=== PATIENT | female | born 1985 | race African-American/Black ===

== ENCOUNTER 2018-02-12 19:07 | Emergency (ER) | payer MEDICAID ==
[~2018-02-12] VITALS: Ht 175.3 cm; Wt 97.0 kg
[2018-02-12 22:30] VITALS: BP 123/78
== END 2018-02-12 23:06 | disposition left against medical advice (07) ==
LOC: ER 19:07
DX: Z04.1 Encounter for examination and observation following transport accident (principal); Z53.21 Procedure and treatment not carried out due to patient leaving prior to being seen by health care provider